=== PATIENT | female | born 1990 | race Two or more races ===

== ENCOUNTER 2019-01-10 17:03 | Emergency (ER) | payer MEDICAID ==
[~2019-01-10] VITALS: Ht 157.5 cm; Wt 81.6 kg
[~2019-01-10 17:03] MED LIST: IBUPROFEN600 MG ORAL; MACROBID100 MG ORAL; MACRODANTIN100 MG ORAL; NKM; NORCO 5-325 TA1 EACH ORAL
[2019-01-10 17:20] VITALS: BP 114/77
--- NOTE | 2019-01-10 17:20 | NUR ---
ED Nurse Note: pt walked in due to pain on bilateral lower rib, denies any pain. pt is complaining of 8/10 pain. jayda lowry on bedside talking with pt regarding the plan of care. will continue to monitor
--- NOTE | 2019-01-10 17:52 | Emergency Room Report ---
History of Present Illness General Chief Complaint: Pain Source: Patient Present Illness HPI 28-year-old female with no significant past medical history here complaining of 2 days of right shoulder pain as well as mid chest pain. Patient denies injury and fall. Complains of intermittent palpitations however denies pain radiation from the chest to the left arm or her jaw. Denies syncope, dizziness, headache , blurry vision. Patient reports that she has been under a lot of stress lately as her son is getting chemotherapy for leukemia and she keeps handling her at home and at the hospitals. Patient is right-handed and has been caring her 30 pound child constantly in the left side of her arm. Denies pain radiation rating a 5 out of 10 denying tingling and numbness. Has been taking ibuprofen and Tylenol for pain relief with minimal relief. Patient is scared of heart related issue as she reports that her father of heart attack at age 32. Denies abdominal pain, nausea vomiting, last menstrual period was 2 weeks ago and regular. Allergies: Coded Allergies: No Known Allergies (Unverified , 10/21/12) Patient History Past Medical History: see triage record Past Surgical History: unable to obtain Pertinent Family History: none Last Menstrual Period: 01/10/19 Now: No Reviewed Nursing Documentation: PMH: Agreed; PSxH: Agreed Nursing Documentation-PMH Past Medical History: No Stated History Review of Systems All Other Systems: negative except mentioned in HPI Physical Exam Vital Signs Date Time Temp Pulse Resp B/P (MAP) Pulse Ox O2 Delivery O2 Flow Rate FiO2 01/10/19 17:09 98.4 83 20 114/77 (89) 98 Room Air Sp02 EP Interpretation: reviewed, normal General Appearance: normal inspection, well appearing, no apparent distress, alert, GCS 15 Head: normocephalic, atraumatic Eyes: bilateral eye normal inspection, bilateral eye PERRL ENT: normal ENT inspection, hearing grossly normal, normal pharynx Neck: normal inspection, full range of motion, supple, thyroid normal Respiratory: normal inspection, chest non-tender, lungs clear, no rhonchi, no respiratory distress, no retraction, no accessory muscle use, no wheezing Cardiovascular #1: normal inspection, normal peripheral pulses, regular rate, rhythm, no edema, no murmur Gastrointestinal: normal inspection, non tender, soft Rectal: deferred Genitourinary: no CVA tenderness Musculoskeletal: normal inspection, back normal, digits/nails normal, gait/ station normal, normal range of motion, non-tender, no calf tenderness Neurologic: normal inspection, alert, oriented x3, responsive Psychiatric: normal inspection, judgement/insight normal, memory normal Skin: normal inspection, normal color, no rash Lymphatic: normal inspection, no adenopathy Medical Decision Making PA Attestation All my diagnosis and treatment plans were reviewed ad discussed with my supervising physician Dr. Gary Diagnostic Impression: Primary Impression: Costochondral chest pain Additional Impression: Right shoulder strain ER Course 28-year-old female with no significant past medical history here complaining of 2 days of right shoulder pain as well as mid chest pain. Patient denies injury and fall. Complains of intermittent palpitations however denies pain radiation from the chest to the left arm or her jaw. Denies syncope, dizziness, headache , blurry vision. Patient reports that she has been under a lot of stress lately as her son is getting chemotherapy for leukemia and she keeps handling her at home and at the hospitals. Patient is right-handed and has been caring her 30 pound child constantly in the left side of her arm. Denies pain radiation rating a 5 out of 10 denying tingling and numbness. Has been taking ibuprofen and Tylenol for pain relief with minimal relief. Patient is scared of heart related issue as she reports that her father of heart attack at age 32. Denies abdominal pain, nausea vomiting, last menstrual period was 2 weeks ago and regular. Ddx considered but are not limited to: SC, Angina, COPD, GERD, costochondritis, right shoulder sprain, strain, fracture Vital signs: are WNL, pt. is afebrile H&PE are most consistent with costochondritis, right shoulder strain ORDERS: EKG, Chest XR, naproxen, Robaxin ED INTERVENTIONS: None required at this time. If continues to have pain physical therapy highly recommended DISCHARGE: At this time pt. is stable for d/c to home. Will provide printed patient care instructions, and any necessary prescriptions. Care plan and follow up instructions have been discussed with the patient prior to discharge. Follow-up with a primary care provider for further evaluation alternate between the 2 arms and hands along heavy objects alternate between icing and heating the affected area EKG Diagnostic Results Rate: normal Rhythm: NSR ST Segments: no acute changes Chest X-Ray Diagnostic Results Chest X-Ray Diagnostic Results : Chest X-Ray Ordered: Yes # of Views/Limited/Complete: 1 View Indication: Chest Pain EP Interpretation: Yes GAURAV Xray: Interpretation reviewed, by supervising MD, and agrees with findings. Interpretation: no consolidation, no effusion, no pneumothorax Impression: No acute disease Electronically Signed by: daniela pack PA-C Last Vital Signs Date Time Temp Pulse Resp B/P (MAP) Pulse Ox O2 Delivery O2 Flow Rate FiO2 01/10/19 17:20 98.4 83 20 114/77 98 Room Air Disposition: HOME, SELF-CARE Condition: Stable Scripts Naproxen* (NAPROXEN*) 500 Mg Tablet 500 MG ORAL TWICE A DAY, #20 TAB Prov: Daniela Louie 01/10/19 Methocarbamol* (ROBAXIN*) 500 Mg Tablet 500 MG PO TID, #15 TAB 0 Refills Prov: Daniela Louie 01/10/19 Patient Instructions: Costochondritis, [id number], Muscle Cramps and Spasms, [id number] Additional Instructions: Follow-up with the primary care provider for further assessment at this point no further imaging is needed alternate between using your arms as you are overusing your right shoulder and lifting heavy objects and doing strenuous physical activity Daniela Louie Jan 10, 2019 17:52
[2019-01-10] MEDS ORDERED: NAPROXEN500 M2 ORAL (17:53)
[2019-01-10] MEDS ORDERED: ROBAXIN500 MG PO (17:53)
--- NOTE | 2019-01-10 18:05 | NUR ---
ER DISCHARGE NOTE: Patient is cleared to be discharged per ERMD, pt is aox4, on room air, with stable vital signs. pt was given dc and prescription instructions, pt was able to verbalize understanding, pt id band removed. pt is able to ambulate with steady gait. pt took all belongings.
--- NOTE | 2019-01-11 12:45 | Diagnostic Imaging Report ---
Indication: Dyspnea Comparison: None A single view chest radiograph was obtained. Findings: Cardiomediastinal appearance is within normal limits for age. The lungs are clear. Pulmonary vascularity is appropriate. The diaphragmatic contour is smooth and costophrenic angles are sharp. No pleural effusions are identified. There is a mild scoliosis of the thoracic spine noted. Impression: No acute findings
== END 2019-01-10 18:06 | disposition home or self-care (01) ==
LOC: EMR 17:35
DX: R07.9 Chest pain, unspecified (principal); S46.911A Strain of unspecified muscle, fascia and tendon at shoulder and upper arm level, right arm, initial encounter; X50.9XXA Other and unspecified overexertion or strenuous movements or postures, initial encounter; Y92.9 Unspecified place or not applicable
CPT/HCPCS: 71045; 93005; 99283

== ENCOUNTER 2020-04-19 05:05 | Emergency (ER) | payer MEDICAID ==
[~2020-04-19] VITALS: Ht 157.5 cm; Wt 90.7 kg
[~2020-04-19 05:05] MED LIST changes: +NAPROXEN500 M2 ORAL; +ROBAXIN500 MG PO
[2020-04-19 05:22] VITALS: BP 122/84
[2020-04-19] MEDS ORDERED: Ketorolac 30mg Inj IV ONE (05:30)
--- NOTE | 2020-04-19 05:32 | Emergency Room Report ---
History of Present Illness General Chief Complaint: Pain Source: Patient Present Illness HPI 29-year-old female with history of gallstones here with right upper quadrant abdominal pain. Patient says that 7 years ago she had right upper quadrant abdominal pain and had an ultrasound that confirmed biliary colic. However the pain resolved on its own and she never required cholecystectomy or any other intervention. She has been pain-free for 7 years but then suddenly had right upper quadrant tenderness that began last night about 5 hours prior to coming to the emergency department. Pain is sharp in nature, located in the right upper quadrant, radiates to the right upper back. She took Tylenol last night with some relief. Pain is worse when she lays on her right side. Not related to food. No fevers, chills, chest pain, palpitations, shortness of breath, other abdominal pain, nausea, vomiting, diarrhea, dysuria, constipation. Allergies: Coded Allergies: No Known Allergies (Unverified , 10/21/12) COVID-19 Screening Contact w/high risk pt: No Experienced COVID-19 symptoms?: No COVID-19 Testing performed ROLLER MAKER: No Patient History Now: No : 2 Para: 2 Nursing Documentation-[facility] Past Medical History: No Stated History Review of Systems All Other Systems: negative except mentioned in HPI Physical Exam Vital Signs Date Time Temp Pulse Resp B/P (MAP) Pulse Ox O2 Delivery O2 Flow Rate FiO2 04/19/20 05:06 98.4 69 18 114/74 (87) 99 Room Air Sp02 EP Interpretation: reviewed, normal General Appearance: no apparent distress, alert, non-toxic Head: normocephalic, atraumatic Eyes: bilateral eye normal inspection, bilateral eye PERRL ENT: hearing grossly normal, normal pharynx, no angioedema, normal voice Neck: full range of motion, supple/symm/no masses Respiratory: chest non-tender, lungs clear, normal breath sounds, speaking full sentences Cardiovascular #1: regular rate, rhythm, no edema Cardiovascular #2: 2+ carotid (R), 2+ carotid (L), 2+ radial (R), 2+ radial (L), 2+ dorsalis pedis (R), 2+ dorsalis pedis (L) Gastrointestinal: normal bowel sounds, soft, non-distended, no guarding, no rebound, other - Mild right upper quadrant tenderness on palpation. Negative Bland sign. No right lower quadrant tenderness, negative Rovsing sign Rectal: deferred Genitourinary: normal inspection, no CVA tenderness Musculoskeletal: back normal, normal range of motion, gait/station normal, non- tender Neurologic: alert, motor strength/tone normal, oriented x3, sensory intact, responsive, speech normal Psychiatric: judgement/insight normal, memory normal, mood/affect normal, no suicidal/homicidal ideation Reflexes: 3+ bicep (R), 3+ bicep (L), 3+ tricep (R), 3+ tricep (L), 3+ knee (R), 3+ knee (L) Lymphatic: no adenopathy Medical Decision Making ER Course 29-year-old female with history of gallstones here with right upper quadrant abdominal pain. Currently awaiting labs and ultrasound. Patient appeared nontoxic. She was neurovascular intact and hemodynamically stable throughout her stay in the emergency department. Signed out to oncoming physician. Last Vital Signs Date Time Temp Pulse Resp B/P (MAP) Pulse Ox O2 Delivery O2 Flow Rate FiO2 04/19/20 05:22 98.4 78 20 122/84 99 Room Air Artie Ho M.D. Apr 19, 2020 05:32
[2020-04-19 05:49] LABS: APPEARANCE,URINE CLEAR; BILIRUBIN, URINE NEGATIVE (NEGATIVE); COLOR,URINE PALE YELLOW; GLUCOSE, URINE (UA) NEGATIVE (NEGATIVE); KETONES,URINE 3+ (NEGATIVE); LEUKOCYTE ESTERASE ,URINE 3+ (NEGATIVE); NITRITE,URINE NEGATIVE (NEGATIVE); PH,URINE 5 (4.5-8.0); PROTEIN,URINE NEGATIVE (NEGATIVE); UROBILINOGEN,URINE NORMAL MG/DL (0.0-1.0)
[2020-04-19 05:51] LABS: BASOPHILS % (AUTO) 2.3 % (0.0-2.0); EOSINOPHILS % (AUTO) 0.5 % (0.0-3.0); HEMATOCRIT 38.5 % (37.0-47.0); HEMOGLOBIN 13.2 G/DL (12.0-16.0); LYMPHOCYTES % (AUTO) 38.6 % (20.0-45.0); MEAN CORPUSCULAR VOLUME 95 FL (80-99); MONOCYTES % (AUTO) 8.3 % (1.0-10.0); NEUTROPHILS % (AUTO) 50.3 % (45.0-75.0); PLATELET COUNT 223 K/UL (150-450); RED BLOOD COUNT 4.04 M/UL (4.20-5.40); RED CELL DISTRIBUTION WIDTH 11.3 % (11.6-14.8); WHITE BLOOD COUNT 5.6 K/UL (4.8-10.8)
[2020-04-19 06:08] LABS: ANION GAP 12 mmol/L (5-15); BLOOD UREA NITROGEN 10 mg/dL (7-18); CARBON DIOXIDE 22 MMOL/L (21-32); CHLORIDE 105 MMOL/L (98-107); CREATININE 0.6 MG/DL (0.55-1.30); POTASSIUM 3.6 MMOL/L (3.5-5.1); SODIUM 139 MMOL/L (136-145)
[2020-04-19 06:13] LABS: ALANINE AMINOTRANSFERASE 46 U/L (12-78); ALBUMIN 3.8 G/DL (3.4-5.0); ALKALINE PHOSPHATASE 74 U/L (46-116); ASPARTATE AMINO TRANSFERASE 25 U/L (15-37); BILIRUBIN,TOTAL 0.5 MG/DL (0.2-1.0)
[2020-04-19 08:00] VITALS: BP 134/70
[2020-04-19] MEDS ORDERED: ACETAMINOPHEN-1 EAC1 ORAL (09:02)
[2020-04-19] MEDS ORDERED: ONDANSETRON ODT4 MG BC (09:02)
[2020-04-19] MEDS ORDERED: FAMOTIDINE20 MG ORAL (09:02)
[2020-04-19 09:09] VITALS: BP 127/80
--- NOTE | 2020-04-19 09:10 | Diagnostic Imaging Report ---
EXAM: ULTRASOUND US ABD Complete CLINICAL HISTORY: Reason For Exam: ABD PAIN. COMPARISON: None TECHNIQUE: Ultrasound examination of the abdomen includes grayscale images, and color and spectral doppler analysis. FINDINGS: The liver and spleen are homogeneous. Shadowing stones noted at the gallbladder neck. Patient is not focally tender. Common bile duct measures 10 mm. The pancreas is unremarkable to the extent visualized. The kidneys are normal in size, shape and axis. Aorta and cava are within normal limits. IMPRESSION: GALLSTONES. PATIENT IS NOT FOCALLY TENDER. DILATED CBD 10 MM.
--- NOTE | 2020-04-19 09:22 | Emergency Room Report ---
Physical Exam Vital Signs Date Time Temp Pulse Resp B/P (MAP) Pulse Ox O2 Delivery O2 Flow Rate FiO2 04/19/20 05:06 98.4 69 18 114/74 (87) 99 Room Air Medical Decision Making Diagnostic Impression: Primary Impression: Cholelithiasis Qualified Codes: K80.20 - Calculus of gallbladder without cholecystitis without obstruction ER Course Hospital Course 29-year-old F presents to ED with RUQ abdominal pain Patient initially seen and evaluated by Dr. Ho; please see his note for full history and physical Clinical course Labs - no leukocytosis, electrolytes ok, LFTs normal, UA unremarkable US shows gallstones, no GB thickening, negative murphys sign, CBD dilated I discussed findings with patient. Afebrile, nontoxic-appearing. No signs of biliary obstruction. Safe for discharge close outpatient follow-up. States she has a PMD I feel this is a highly complex case requiring extensive working including EKG/Rhythm strip, Xray/CT/US, Blood/urine lab work, repeat exams while in ED, and administration of strong opiates/narcotics for pain control, admission to hospital or close patient follow up. Diagnosis - cholelithiasis Stable and discharged to home with prescription for T3, zofran, pepcid. Followup with PMD. Return to ED if symptoms recur or worsen Laboratory Tests Test 04/19/20 05:23 04/19/20 05:28 Urine Color Pale yellow Urine Appearance Clear Urine pH 5 (4.5-8.0) Urine Specific [place] 1.010 (1.005-1.035) Urine Protein Negative (NEGATIVE) Urine Glucose (UA) Negative (NEGATIVE) Urine Ketones 3+ (NEGATIVE) H Urine Blood 1+ (NEGATIVE) H Urine Nitrite Negative (NEGATIVE) Urine Bilirubin Negative (NEGATIVE) Urine Urobilinogen Normal MG/DL (0.0-1.0) Urine Leukocyte Esterase 3+ (NEGATIVE) H Urine RBC 0-2 /HPF (0 - 2) Urine WBC 2-4 /HPF (0 - 2) Urine Squamous Epithelial Cells Moderate /LPF (NONE/OCC) H Urine Bacteria Few /HPF (NONE) White Blood Count 5.6 K/UL (4.8-10.8) Red Blood Count 4.04 M/UL (4.20-5.40) L Hemoglobin 13.2 G/DL (12.0-16.0) Hematocrit 38.5 % (37.0-47.0) Mean Corpuscular Volume 95 FL (80-99) Mean Corpuscular Hemoglobin 32.7 PG (27.0-31.0) H Mean Corpuscular Hemoglobin Concent 34.4 G/DL (32.0-36.0) Red Cell Distribution Width 11.3 % (11.6-14.8) L Platelet Count 223 K/UL (150-450) Mean Platelet Volume 11.4 FL (6.5-10.1) H Neutrophils (%) (Auto) 50.3 % (45.0-75.0) Lymphocytes (%) (Auto) 38.6 % (20.0-45.0) Monocytes (%) (Auto) 8.3 % (1.0-10.0) Eosinophils (%) (Auto) 0.5 % (0.0-3.0) Basophils (%) (Auto) 2.3 % (0.0-2.0) H Sodium Level 139 MMOL/L (136-145) Potassium Level 3.6 MMOL/L (3.5-5.1) Chloride Level 105 MMOL/L (98-107) Carbon Dioxide Level 22 MMOL/L (21-32) Anion Gap 12 mmol/L (5-15) Blood Urea Nitrogen 10 mg/dL (7-18) Creatinine 0.6 MG/DL (0.55-1.30) Estimat Glomerular Filtration Rate > 60 mL/min (>60) Glucose Level 87 MG/DL (74-106) Calcium Level 9.0 MG/DL (8.5-10.1) Total Bilirubin 0.5 MG/DL (0.2-1.0) Aspartate Amino Transf (AST/SGOT) 25 U/L (15-37) Alanine Aminotransferase (ALT/SGPT) 46 U/L (12-78) Alkaline Phosphatase 74 U/L (46-116) Total Protein 7.6 G/DL (6.4-8.2) Albumin 3.8 G/DL (3.4-5.0) Globulin 3.8 g/dL Albumin/Globulin Ratio 1.0 (1.0-2.7) Lipase 93 U/L (73-393) Human Chorionic Gonadotropin, Qual Negative (NEGATIVE) CT/MRI/US Diagnostic Results CT/MRI/US Diagnostic Results : Imaging Test Ordered: ABD US Impression Procedure: US ABD Complete EXAM: ULTRASOUND US ABD Complete CLINICAL HISTORY: Reason For Exam: ABD PAIN. COMPARISON: None TECHNIQUE: Ultrasound examination of the abdomen includes grayscale images, and color and spectral doppler analysis. FINDINGS: The liver and spleen are homogeneous. Shadowing stones noted at the gallbladder neck. Patient is not focally tender. Common bile duct measures 10 mm. The pancreas is unremarkable to the extent visualized. The kidneys are normal in size, shape and axis. Aorta and cava are within normal limits. IMPRESSION: GALLSTONES. PATIENT IS NOT FOCALLY TENDER. DILATED CBD 10 MM. Last Vital Signs Date Time Temp Pulse Resp B/P (MAP) Pulse Ox O2 Delivery O2 Flow Rate FiO2 04/19/20 09:09 97.9 86 17 127/80 100 Room Air Status: improved Disposition: HOME, SELF-CARE Condition: Stable Scripts Famotidine* (Pepcid 20mg tablet*) 20 Mg Tablet 20 MG ORAL DAILY, #30 TAB 0 Refills Prov: Nicolas Andersen MD 04/19/20 Ondansetron Odt* (ZOFRAN ODT*) 4 Mg Tab.rapdis 4 MG BC EVERY 6 HOURS PRN for Nausea & Vomiting, #10 TAB 0 Refills Prov: Nicolas Andersen MD 04/19/20 Acetaminophen With Codeine (T#3) (TYLENOL #3 TAB*) Y Tab 1 TAB ORAL Q4H PRN for For Pain, #12 TAB Prov: Nicolas Andersen MD 04/19/20 Referrals: NON PHYSICIAN (PCP) Patient Instructions: Biliary Colic Nicolas Andersen MD Apr 19, 2020 09:22
== END 2020-04-19 09:09 | disposition home or self-care (01) ==
LOC: EMR 05:40
DX: K80.20 Calculus of gallbladder without cholecystitis without obstruction (principal)
CPT/HCPCS: 36415; 76700; 80053; 81003; 83690; 84703; 85025; 96374; 96375; J1885; J2405; Z7502; 99284